=== PATIENT | male | born 1970 | race African-American/Black ===

== ENCOUNTER 2018-04-15 10:23 | Emergency (ER) | payer MEDICAID ==
[~2018-04-15] VITALS: Ht 177.8 cm; Wt 77.1 kg
[2018-04-15 10:37] VITALS: BP 133/62
--- NOTE | 2018-04-15 11:30 | NUR ---
pt left before md milan.
== END 2018-04-15 12:01 | disposition left against medical advice (07) ==
LOC: ER 10:25
DX: Z53.21 Procedure and treatment not carried out due to patient leaving prior to being seen by health care provider (principal)
CPT/HCPCS: A4606; Z7610